=== PATIENT | female | born 1945 | race Hispanic/Latino ===

== ENCOUNTER 2017-03-30 08:22 | Outpatient (CLI) | payer MEDICARE ==
--- NOTE | 2017-03-30 15:10 | PET Report ---
PET/CT:03/30/17 08:22:00 CLINICAL: Lung mass. RADIOPHARMACEUTICAL: 13.3mCi F18-FDG. COMPARISON: None. TECHNIQUE- Following intravenous injection of F-18 FDG and an approximately 60 minute uptake period, CT and PET images from the mid skull to the upper thighs were acquired with the patient in the fasted state. No contrast was administered. The CT protocol used for this PET CT study is designed for attenuation correction and anatomic localization of PET abnormalities. This medical laboratory scientist CT is not desired to produce and cannot replace, iisfc-ya-[id number]-art diagnostic CT scans with specific imaging protocols for different body parts and indications. Plasma glucose at the time of this test: 72g/dl. The standardized uptake values (SUV) are normalized to patient body weight and indicate the highest activity concentration (SUV max) in a given disease site. FINDINGS: Brain--Physiologic FDG uptake in the visualized regions of the brain. Neck--Physiologic FDG uptake . Chest--Physiologic FDG uptake in mediastinal blood pool and myocardium. Lungs-An irregular FDG avid left lower lobe lung mass measures 3.2 cm transverse dimension by 2.7 cm AP dimension by 6.4 cm craniocaudal dimension with issue the 3.2. Air bronchograms are identified within the mass. No other lung mass or nodule. Pleura/pericardium--No abnormal uptake. No pleural effusion. Thoracic nodes--Focal FDG uptake in the left pulmonary hilum with SUV 3.7. A distinct lymph node is not identified on the CT. Hepatobiliary--No abnormal uptake. Liver background SUV mean, as a reference for comparing FDG studies, is 2.9 . No liver mass. Spleen--No abnormal uptake. Pancreas--No abnormal uptake. Adrenal Glands--No abnormal uptake. Kidneys/Ureters/Bladder--No abnormal uptake. Abdominopelvic Nodes--No abnormal uptake. Bowel/Peritoneum/Mesentery--No abnormal uptake. Nonspecific wall thickening of the distal anal canal. It measures 15 mm. Pelvic organs--No abnormal uptake. Bones/Soft Tissues--No abnormal uptake. Other findings: Status post hysterectomy. IMPRESSION- 1. A 6.4 cm left lower lobe lung mass with mild FDG uptake is suspicious for tumor and focal FDG uptake in the left pulmonary hilum is suspicious for charles metastasis to the left hilum.2. No evidence of hepatic, skeletal or adrenal metastasis. 3. Nonspecific anal wall thickening. Consider further workup
== END 2017-03-30 08:23 | disposition home or self-care (01) ==
LOC: PET 08:22
PROVIDERS: ATTEND Specialist
DX: R91.8 Other nonspecific abnormal finding of lung field (principal); Z90.710 Acquired absence of both cervix and uterus; Z79.899 Other long term (current) drug therapy
CPT/HCPCS: 78815; 82962; A9552

== ENCOUNTER 2017-11-02 10:47 | Outpatient (CLI) | payer MEDICARE ==
--- NOTE | 2017-11-02 15:17 | PET Report ---
PET SB TO MT subsequent: HISTORY: Breast cancer. TECHNIQUE: 15.6 millicuries F-18 FDG was administered intravenously. Noncontrast CT images and PET images were obtained from the skull base to the proximal thighs. Fused images were reviewed on a workstation. The patient's blood glucose level measured 98. COMPARISON: 03/30/17. FINDINGS: BRAIN: physiologic FDG uptake in the imaged brain. NECK: physiologic FDG uptake. CHEST WALL: Physiologic FDG uptake. No abnormal breast uptake is detected. MEDIASTINUM: physiologic FDG uptake. LUNGS: physiologic FDG uptake. Left pneumonectomy changes are noted since 03/30/17. The right lung is clear with no evidence of nodule or infiltrate. PLEURA/PERICARDIUM: physiologic FDG uptake. THORACIC LYMPH NODES: physiologic FDG uptake. HEPATOBILIARY: physiologic FDG uptake. Mean liver SUV measures 2.6 as opposed to 3.1 on the previous exam. PANCREAS: physiologic FDG uptake. SPLEEN: physiologic FDG uptake. ADRENAL GLANDS: physiologic FDG uptake. KIDNEYS/RENAL COLLECTING SYSTEMS: physiologic FDG uptake. BOWEL/MESENTERY: physiologic FDG uptake. PELVIC VISCERA: physiologic FDG uptake. ABDOMINAL/PELVIC LYMPH NODES: physiologic FDG uptake. MUSCULOSKELETAL: physiologic FDG uptake. IMPRESSION: Negative PET/CT. No evidence for disease recurrence or metastasis.
== END 2017-11-02 10:48 | disposition home or self-care (01) ==
LOC: PET 10:47
PROVIDERS: ATTEND Internal Medicine Hematology & Oncology
DX: C50.012 Malignant neoplasm of nipple and areola, left female breast (principal); C34.32 Malignant neoplasm of lower lobe, left bronchus or lung; C34.12 Malignant neoplasm of upper lobe, left bronchus or lung; I48.91 Unspecified atrial fibrillation; Z90.2 Acquired absence of lung [part of]; Z79.899 Other long term (current) drug therapy
CPT/HCPCS: 78815; 82962; A9552

== ENCOUNTER 2018-04-19 11:58 | Outpatient (CLI) | payer MEDICARE ==
--- NOTE | 2018-04-20 14:41 | PET Report ---
PET/CT:04/19/18 11:58:00 CLINICAL: Left lung cancer restaging. RADIOPHARMACEUTICAL: 13.99mCi F18-FDG. COMPARISON: 11/02/17 PET/CT TECHNIQUE- Following intravenous injection of F-18 FDG and an approximately 60 minute uptake period, CT and PET images from the mid skull to the upper thighs were acquired with the patient in the fasted state. No contrast was administered. The CT protocol used for this PET CT study is designed for attenuation correction and anatomic localization of PET abnormalities. This survey technologist CT is not desired to produce and cannot replace, kzhcf-[id number]-art diagnostic CT scans with specific imaging protocols for different body parts and indications. Plasma glucose at the time of this test: 107g/dl. The standardized uptake values (SUV) are normalized to patient body weight and indicate the highest activity concentration (SUV max) in a given disease site. FINDINGS: Brain--Physiologic FDG uptake in the visualized regions of the brain. Neck--Physiologic FDG uptake in mucosal structures. Chest--Physiologic FDG uptake in mediastinal blood pool and myocardium. Lungs/pleura--Status post left pneumonectomy with fluid in the pneumonectomy space. New FDG uptake in the wall of the pneumonectomy cavity. Multifocal FDG uptake range is 3-4 SUV but focal FDG uptake at the inferior aspect of the cavity and deep to the left 11th rib with SUV 8.0. No measurable soft tissue mass is identified associated with this activity. 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 The mass is FDG avid and measures 2.5 x 2.3 x 2.8 cm with SUV 14.4. No lung mass. Pericardium--No abnormal uptake. Thoracic nodes--No abnormal uptake. Hepatobiliary--Multiple (at least six) new FDG avid hypodense right and left lobe liver masses. The most prominent is in the medial segment of the left lobe and measures 1.6 x 1.5 cm with SUV 8.0. Liver background SUV mean, as a reference for comparing FDG studies, is 2.9 compared to 2.5 on the last exam. Spleen--No abnormal uptake. Pancreas--No abnormal uptake. Adrenal Glands--No abnormal uptake. Kidneys/Ureters/Bladder--No abnormal uptake. Abdominopelvic Nodes--No abnormal uptake. Bowel/Peritoneum/Mesentery--No abnormal uptake. Pelvic organs--No abnormal uptake. Bones/Soft Tissues--lytic lesion of the left third rib and no other bone lesion. IMPRESSION- 1. 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 2. New multifocal FDG uptake at the margins of the pneumonectomy cavity with the most suspicious activity at the inferior margin of the cavity. 3. New multifocal hepatic metastasis with at least six FDG avid masses.
== END 2018-04-19 11:59 | disposition home or self-care (01) ==
LOC: PET 11:58
PROVIDERS: ATTEND Internal Medicine Hematology & Oncology
DX: C34.12 Malignant neoplasm of upper lobe, left bronchus or lung (principal)
CPT/HCPCS: 78815; A9552

== ENCOUNTER 2018-04-23 14:07 | Outpatient (CLI) | payer MEDICARE ==
--- NOTE | 2018-04-23 15:42 | Magnetic Resonance Report ---
MRI BRAIN WITH/WITHOUT CONTRAST: History: Malignant neoplasm of upper inner quadrant of female breast. Comparison: None at this facility. Technique: Multiple T1 and T2 weighted images were obtained in multiple planes. Axial diffusion and gradient imaging was performed. Post contrast T1 images in two planes were obtained following IV gadolinium. Findings: The brain parenchyma signal intensity and its gerber-white interface are normal on all sequences. No abnormal parenchymal signal. No diffusion restriction, hemorrhage, mass effect or extra-axial fluid collection. Ventricular size is normal and symmetric. The basal cisterns are clear. The brainstem and cerebellar hemispheres are within normal limits. The fourth ventricle is midline. The paranasal sinuses and mastoid air cells are well aerated. Normal flow voids are identified in the appropriate vessels at the [place]. No abnormal enhancement is identified following IV gadolinium. Impression: 1. Unremarkable MRI brain with and without contrast.
== END 2018-04-23 14:08 | disposition home or self-care (01) ==
LOC: MRI 14:07
PROVIDERS: ATTEND Internal Medicine Hematology & Oncology
DX: C50.212 Malignant neoplasm of upper-inner quadrant of left female breast (principal)
CPT/HCPCS: 70553; A9577

== ENCOUNTER 2018-05-01 08:40 | Day surgery (SDC) | payer MEDICARE ==
[2018-05-01 10:13] LABS: Basophils % (Auto) 0.1 % (0.0-1.8); Eosinophils % (Auto) 0.2 % (0.0-4.3); Hematocrit 28.3 % (30.3-42.9); Hemoglobin 9.5 gm/dl (10.1-14.3); Lymphocytes # (Auto) 0.4 K/mm3 (1.2-5.4); Lymphocytes % (Auto) 3.6 % (13.4-35.0); Mean Corpuscular HGB Conc 33 % (30-34); Mean Corpuscular Hemoglobin 32 pg (28-32); Mean Corpuscular Volume 95 fl (79-97); Monocytes # (Auto) 1.1 K/mm3 (0.0-0.8); Platelet Count 430 K/mm3 (140-440); Red Blood Count 2.98 M/mm3 (3.65-5.03); Red Cell Distribution Width 15.4 % (13.2-15.2)
[2018-05-01 10:25] LABS: INR 0.95 (0.87-1.13)
[2018-05-01] MEDS ORDERED: SUBLIMAZE IV ONE (10:32)
[2018-05-01] MEDS ORDERED: VERSED IV ONE (10:32)
--- NOTE | 2018-05-01 14:09 | Cat Scan Report ---
CT BIOPSY LIVER History: Liver mass Description of procedure: Informed consent was obtained. Sterile technique was utilized. 1% lidocaine for skin anesthesia. Conscious sedation was accomplished with Versed and fentanyl. The patient was sedated for 15 minutes. Intraobserver time of 15 minutes. Independent cardiorespiratory monitoring by RN. Using CT guidance, a 19-gauge introducer needle was advanced to the leading edge of a 2.1 cm hypodense mass in the right hepatic lobe. 4 separate 2.2 cm 20-gauge core biopsies were obtained. Pathology was present and deemed the samples adequate. Followup scan demonstrated no evidence for hemorrhage. The patient tolerated the procedure without difficulty. Impression: Successful CT-guided biopsy of a 2.1 cm right hepatic lobe mass.
[2018-05-01 14:14] VITALS: BP 100/46
== END 2018-05-01 14:45 | disposition home or self-care (01) ==
LOC: CATHLABREC 08:40
PROVIDERS: ATTEND Internal Medicine Hematology & Oncology
DX: C22.9 Malignant neoplasm of liver, not specified as primary or secondary (principal); E78.00 Pure hypercholesterolemia, unspecified; I10 Essential (primary) hypertension; J45.909 Unspecified asthma, uncomplicated; J44.9 Chronic obstructive pulmonary disease, unspecified; F17.200 Nicotine dependence, unspecified, uncomplicated; Z79.899 Other long term (current) drug therapy; Z90.710 Acquired absence of both cervix and uterus; Z85.3 Personal history of malignant neoplasm of breast; Z85.118 Personal history of other malignant neoplasm of bronchus and lung; Z98.890 Other specified postprocedural states
CPT/HCPCS: 36415; 47000; 77012; 85025; 85610; 85730; 88307; 88342; 99156; J2250; J3010; 88333; 88334